=== PATIENT | male | born 1970 | race Caucasian/White ===

== ENCOUNTER → 2021-12-12 08:40 | Outpatient (BNVA) | payer OTHER, SELFPAY | PROVIDERS: PCP Family Medicine; Visit Provider Family Medicine | DX: Z00.00 Encounter for general adult medical examination without abnormal findings (principal) | CPT/HCPCS: 80053; 80061 ==

== ENCOUNTER → 2021-12-26 16:12 | Outpatient (BNVA) | payer OTHER, SELFPAY | PROVIDERS: PCP Family Medicine; Referring Provider Family Medicine; Visit Provider Orthopaedic Surgery | DX: S46.219A Strain of muscle, fascia and tendon of other parts of biceps, unspecified arm, initial encounter (principal); X58.XXXA Exposure to other specified factors, initial encounter | CPT/HCPCS: 73080 ==

== ENCOUNTER 2022-01-04 06:03 | Day surgery (SDC) | payer OTHER, SELFPAY ==
[2022-01-03 14:59] VITALS: BMI 29.1
[2022-01-04] VITALS (7 sets, daily range): BP systolic 113–144; BP diastolic 76–89; PULSE 60–87; RESP 12–18; TEMP 36.1–36.4; O2SAT 93–98
--- NOTE | 2022-01-04 | SCC_ITS ---
Procedure done: Open repair left distal biceps 5.0 seconds of fluoroscopic guidance, for a cumulative dose of 0.20 mGy, was provided to Dr. Del Real by the radiology department. C-arm images of the left elbow were saved for the patient's permanent record. [facility]
--- NOTE | 2022-01-04 | XR_ITS ---
WS: [id number] Exam: XR elbow LT 2V [id number] Date/Time of Exam: 01/04/2022 9:13 AM Reason For Exam: OR PICS. LEFT DISTAL BICEPS TENDON REPAIR Intraoperative lateral C-arm images of the left elbow are submitted for evaluation. Plate fixation device noted in the radial tuberosity. Postoperative changes in the anterior soft tiss ues of the elbow. No other significant finding on this limited study.
[2022-01-04] MEDS: sodium chloride 0.9% 1,000 ML 30 ML IV (06:37)
--- NOTE | 2022-01-04 07:22 | ANES.PREANE2 ---
Pre-Anesthetic Assessment Height/Weight: Height 1.83 m Weight 97.522 kg Temp Pulse Resp BP Pulse Ox 97.5 F L 87 18 144/87 98 01/04/22 06:15 01/04/22 06:15 01/04/22 06:15 01/04/22 06:15 01/04/22 06:15 Preop Diagnosis: Left distal biceps rupture Operation Date: 01/04/22 07:25 Proposed Procedures p left distal biceps tendon repair/ [id number],S46.219A(Left) - Robert Del Real MD Familial anesthetic complications: None Was Beta Sylvia taken within 24 hours: N/A Was Clonidine taken within 24 hours: N/A Last intake: Intake Last Liquid Date 01/03/22 Last Liquid Time 19:30 Last Solid Date 01/03/22 Last Solid Time 19:30 Social No alcohol and No tobacco Exam alert, oriented x 3, clear to auscultation bilaterally and regular rate & rhythm Airway Submandibular: within normal limits Cervical ROM: within normal limits Mallampati: Class II Dentition: chipped History/ROS No significant history except as noted Anesthetic Plan ASA status: 1 Anesthesia: General Medications/Allergies Home Medications Medication Instructions Recorded Confirmed Last Taken Type cetirizine 10 mg tablet (Zyrtec) 10 mg PO DAILY PRN 12/28/21 01/04/22 01/03/22 History multivitamin 1 tab PO DAILY 12/28/21 01/04/22 01/03/22 History Allergies Allergy/AdvReac Type Severity Reaction Status Date / Time No Known Allergies Allergy Verified 12/28/21 10:15 Current Medications Generic Name Dose Route Start Last Admin Trade Name Freq PRN Reason Stop Dose Admin Sodium Chloride 1,000 mls @ 30 mls/hr 01/04/22 06:15 01/04/22 06:37 Sodium Chloride 0.9% IV 01/05/22 06:14 30 mls/hr .Q24H TETO Administration PFSH Anesthesia Medical History (Updated 01/01/22 @ 07:37 by Gloria Stuart DO) Biceps muscle tear No pertinent past medical history Surgical History No pertinent past surgical history Social History Smoking and tobacco status: never smoked History of recent travel: No Data Anesthesia Cardiac Studies: No Data to Display
--- NOTE | 2022-01-04 07:29 | W.PM.OPSUD ---
Surgery/Procedure H&P Update DATE OF PROCEDURE: January 04, 2022 DATE H&P PERFORMED: 12/26/21 H&P UPDATE INFORMATION: I have reviewed H&P completed within last 30 days PREOP DIAGNOSIS: Left distal biceps rupture PLANNED PROCEDURE: Operation Date: 01/04/22 07:25 Proposed Procedures p left distal biceps tendon repair/ 50732,S46.219A(Left) - Robert Del Real MD
--- NOTE | 2022-01-04 09:17 | PM.OP ---
Operative Report Date of procedure: January 04, 2022 Pre-op diagnosis: Preop Diagnosis Left distal biceps rupture Procedure done: Open repair left distal biceps Implants: [employer] Endobutton Pathology: none sent Surgeon: Robert Del Real Anesthesia: General Estimated blood loss (mL): 10 Tourniquet time (min): 42 Findings: The patient had a complete of his left biceps tendon from its insertion on the radial tuberosity Procedure: The patient was taken to the operating room and given a general. They were prepped and draped in the supine position with a tourniquet on the involved arm. Timeout was performed. The tourniquet was inflated 250 mmHg. A transverse incision approximately 4 cm long was made in line with the distal flexion crease section was carried through the fascia and a superficial veins retracted. The distal biceps tendon was palpable and digitally are reflected into the wound. Utilizing a scalpel blade a distal 1 cm very enlarged degenerative tendon was excised. Ultratape suture was passed in a locking Krak?w fashion beginning proximally extending distally out the tendon, around the Endobutton and back through the tendon distal proximal. The knot was secured proximally. Approximately 3 mm were left between the ends of the tendon and the Endobutton. The Endobutton was then passed the tendon through a sizing tube in the tendon measured approximately 7 mm. Blunt dissection was accomplished down to the radial tuberosity. A guidepin was driven from anterior is slightly proximal to distal slightly posterior with the arm in maximal supination. Fluoroscopy was used to verify position of pin. A Endobutton reamer was passed through both cortices and a 7 mm reamer through the anterior cortex. Endobutton sutures were then passed through the eyelet of the guide pin. In the guide pin passed through the dorsal arm. The sutures were used to shuttle the Endobutton which was felt to engage on the far cortex of the radius. Dropper fluoroscopy showed satisfactory position of the button. The tourniquet was deflated at 42 min. Heis provided with bipolar cautery. Deep tissues were closed with 3-0 Vicryl and the skin with skin crys. Sterile dressings consisting of Xeroflo, 4 x 4's, and Lev wrap were applied. Patient was placed in a hinged elbow brace locked in 60? of flexion.
--- NOTE | 2022-01-04 09:24 | P.PCN_ITS ---
PACU note Narrative: VSS, Good respiratory effort, report to [employer] SUPERINTENDENT Exam: awake
--- NOTE | 2022-01-04 09:24 | PM.PACU ---
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
[2022-01-04] MEDS: HYDROcodone-acetaminophen 5-325 mg Tablet 1 TAB PO (10:13)
[2022-01-04] MEDS: HYDROmorphone 1 mg/mL INJ 1 mL 0.5 MG IVP (10:33)
--- NOTE | 2022-01-04 14:56 | ANE.PACU2 ---
Inpatient post-anesthesia follow up: Airway intact: Yes Vital signs: Temperature 97.2 F Pulse Rate 78 Respiratory Rate 18 Blood Pressure 132/83 Pulse Oximetry 98 Oxygen Delivery Me thod Room Air Oxygen Flow Rate Fraction of Inspir ed Oxygen Hydration adequate: Yes Nausea and vomiting: No Pain level: 4 Mental status: Baseline
== END 2022-01-04 10:55 | disposition home or self-care (01) ==
PROVIDERS: PCP Family Medicine; Visit Provider Orthopaedic Surgery
PROC: (CPT 23430; principal; 2022-01-04 07:25)
DX: S46.212A Strain of muscle, fascia and tendon of other parts of biceps, left arm, initial encounter (principal); X58.XXXA Exposure to other specified factors, initial encounter
CPT/HCPCS: 24342; 73070; 76000; C1713; J1100; J1170; J1580; J2405; J2704; J2710; J3010; J3490; J7030

== ENCOUNTER 2022-01-09 12:59 | Outpatient (CLI) | payer OTHER, SELFPAY | END 2022-01-09 13:00 | disposition home or self-care (01) | LOC: SPT 13:00 | PROVIDERS: PCP Family Medicine; Visit Provider Nurse Practitioner Family | DX: Z46.89 Encounter for fitting and adjustment of other specified devices (principal); S46.219D Strain of muscle, fascia and tendon of other parts of biceps, unspecified arm, subsequent encounter; X58.XXXD Exposure to other specified factors, subsequent encounter | CPT/HCPCS: 97760; L3761 ==

== ENCOUNTER 2022-01-25 06:00 | Outpatient (RCR) | payer OTHER, SELFPAY | END 2022-02-11 23:59 | disposition home or self-care (01) | LOC: SPT 06:00 | PROVIDERS: PCP Family Medicine; Referring Provider Nurse Practitioner Family; Visit Provider Nurse Practitioner Family | DX: S46.212D Strain of muscle, fascia and tendon of other parts of biceps, left arm, subsequent encounter (principal); X58.XXXD Exposure to other specified factors, subsequent encounter | CPT/HCPCS: 97110; 97161 ==

== ENCOUNTER 2022-02-12 06:00 | Outpatient (RCR) | payer OTHER, SELFPAY | END 2022-03-14 23:59 | disposition home or self-care (01) | LOC: SPT 06:00 | PROVIDERS: PCP Family Medicine; Referring Provider Nurse Practitioner Family; Visit Provider Nurse Practitioner Family | DX: S46.212D Strain of muscle, fascia and tendon of other parts of biceps, left arm, subsequent encounter (principal); X58.XXXD Exposure to other specified factors, subsequent encounter | CPT/HCPCS: 97110 ==

== ENCOUNTER 2022-04-05 10:52 | Outpatient (RCR) | payer OTHER, SELFPAY | END 2022-04-13 23:59 | disposition home or self-care (01) | LOC: SPT 10:52 | PROVIDERS: PCP Family Medicine; Referring Provider Nurse Practitioner Family; Visit Provider Nurse Practitioner Family | DX: Z47.89 Encounter for other orthopedic aftercare (principal); M25.522 Pain in left elbow | CPT/HCPCS: 97110 ==

== ENCOUNTER 2022-04-14 06:00 | Outpatient (RCR) | payer OTHER, SELFPAY | END 2022-05-04 23:59 | disposition home or self-care (01) | LOC: SPT 06:00 | PROVIDERS: PCP Family Medicine; Visit Provider Nurse Practitioner Family | DX: S46.212D Strain of muscle, fascia and tendon of other parts of biceps, left arm, subsequent encounter (principal); X58.XXXD Exposure to other specified factors, subsequent encounter | CPT/HCPCS: 97110 ==

== ENCOUNTER → 2022-10-15 08:19 | Outpatient (BNVA) | payer OTHER, SELFPAY | PROVIDERS: PCP Family Medicine; Visit Provider Family Medicine | DX: Z00.00 Encounter for general adult medical examination without abnormal findings (principal) | CPT/HCPCS: 80053; 80061 ==